=== PATIENT | female | born 1970 | race African-American/Black ===

== ENCOUNTER 2019-07-11 10:29 | Day surgery (SDC) | payer BC, OTHER ==
[2019-07-06 09:33] LABS: HEMATOCRIT 39.8 % (37.0-47.0); HEMOGLOBIN 13.3 gm/dL (12.0-15.0); MCH 27.8 pg (26.0-34.0); MCHC 33.4 g/dL (28.0-37.0); MCV 83.3 fL (80.0-100.0); RBC 4.78 mil/uL (4.20-5.00); RDW 17.4 % (10.5-14.5); WBC 4.7 thou/uL (4.0-11.0)
[2019-07-06 09:40] LABS: URINE BILIRUBIN NEGATIVE (Negative); URINE BLOOD NEGATIVE (Negative); URINE CLARITY CLEAR; URINE COLOR YELLOW; URINE GLUCOSE-RANDOM* NEGATIVE (Negative); URINE KETONES NEGATIVE (Negative); URINE LEUKOCYTES-REFLEX NEGATIVE (Negative); URINE NITRITE-REFLEX NEGATIVE (Negative); URINE PROTEIN (DIPSTICK) NEGATIVE (Negative); URINE UROBILINOGEN 0.2 E.U./dl (0.2-1.0)
[2019-07-06 09:48] LABS: INR 1.1; PROTIME 10.9 Seconds (9.3-11.4)
[2019-07-06 09:50] LABS: CALCIUM 8.6 mg/dL (8.5-10.1); CREATININE 0.7 mg/dL (0.6-1.0); POTASSIUM 4.1 mmol/L (3.5-5.1)
[~2019-07-11] VITALS: Ht 152.4 cm; Wt 91.6 kg
[~2019-07-11 10:29] MED LIST: NICOTINE GUM2 MG BUCCAL; TRAMADOL 50 MG50 MG PO; TRAZODONE 150150 M1 PO
[2019-07-11 12:55] VITALS: BP 111/64
[2019-07-11 15:00] VITALS: BP 132/81
[2019-07-11 15:30] VITALS: BP 122/63
--- NOTE | 2019-07-11 16:46 | NUR ---
PATIENT CAME TO 4 S UNIT ROOM 448 AT 1505. PT ALERT XS4 HAS [employer] DRESSING IN PLACE AND POLAR PACK. HAS SCD'S ON SAPNA LE'S. HAD RIGHT TKR. DR KERR DID PROCEDURE. V.S 97.5 16 62 132/81 O2 SAT = 96 % RA. 1530 V.S 97.7 16 64 122/63 O2 SAT 94 % RA.
--- NOTE | 2019-07-11 19:03 | NUR ---
PT SLEEPING AT THIS TIME ATE 100 % DINNER. SPOKE TO HER . STATES NO NEED FOR THIS NURSE TO CALL. PT IS PLEASANT AND COOPERATIVE WITH CARE. 734.00 DOLLARS IN GOINS AND 45.00 CHECK SECURITY CAME AND LOCKED UP FOR PATIENT.
[2019-07-11 19:28] VITALS: BP 115/78
[2019-07-11 20:18] VITALS: BP 115/78
--- NOTE | 2019-07-11 23:31 | NUR ---
PT AOX4. PT REPORTING PAIN IN RIGHT KNEE. PT RECEIVING PRN PO NORCO Q4HR, PRN IV MORPHINE Q1HR, AND PRN PO OXYCODONE Q4HR. PT AMBULATING TO BEDSIDE COMMODE WITH WALKER AND X1 ASSIST. PT TOLERATING PO INTAKE OF FLUIDS AND REGULAR DIET. ENCOURAGED PT TO NOTIFY STAFF FOR ALL NEEDS. CALL LIGHT WITHIN REACH, BED ALARM ON, BED IN LOWEST POSITION. WILL CONTINUE TO MONITOR.
[2019-07-12 04:43] VITALS: BP 112/62
[2019-07-12 05:38] LABS: HEMATOCRIT 34.8 % (37.0-47.0); HEMOGLOBIN 11.4 gm/dL (12.0-15.0); MCH 27.6 pg (26.0-34.0); MCHC 32.6 g/dL (28.0-37.0); MCV 84.5 fL (80.0-100.0); RBC 4.12 mil/uL (4.20-5.00); RDW 17.1 % (10.5-14.5); WBC 7.8 thou/uL (4.0-11.0)
--- NOTE | 2019-07-12 11:07 | O ---
[facility] [place] [address] OPERATIVE REPORT Name: GIOVANI SERRA Room #: 448-P REG [facility] [place] M.R.#: [id number] Admission: 07/11/19 Attend Phys: Aakash Villegas MD Discharge: Date of : 70 Report #: [id number] THIS REPORT FOR: cc: Susanna Robles MD,Susanna Villegas,Aakash Westfall MD ~ CC: Susanna Villegas DATE OF SERVICE: 07/11/2019 PREOPERATIVE DIAGNOSIS: Right knee osteoarthritis. POSTOPERATIVE DIAGNOSIS: Right knee osteoarthritis. PROCEDURE: Right total knee arthroplasty using Navio robotic assistance. SURGEON: Aakash Villegas MD HIDE MILL WORKER: Maylin Jhaveri PA-C INDICATIONS FOR HIDE MILL WORKER: Throughout the case, extensive retraction and manipulation of the knee was required. This was afforded to me by my carpenter's assistant. ANESTHESIA: LMA with an adductor canal block. IMPLANTS: [employer] size 5 Journey II BCS Oxinium femur, a size 3 tibia, size 10 polyethylene and size 32 patella. TOURNIQUET TIME: 57 minutes. ESTIMATED BLOOD LOSS: 25 mL. COMPLICATIONS: None. SPECIMENS: None. CONDITION UPON LEAVING THE OPERATING ROOM: Stable. INDICATIONS FOR PROCEDURE: The patient is a 48-year-old female with right knee osteoarthritis. She had failed conservative measures for this and after discussion with her, she elected for right total knee arthroplasty. DESCRIPTION OF PROCEDURE: Risks, benefits, alternatives, complications were discussed in detail with the patient including but not limited to risk of anesthesia, risk of damage to nerves, arteries, blood vessels, risk for [facility] [address] [place] [address] OPERATIVE REPORT Name: GIOVANI SERRA Room #: 448-P REG [facility].#: [id number] Admission: 07/11/19 Attend Phys: Aakash Villegas MD Discharge: Date of : 70 Report #: [id number] infection or bleeding, risk for continued knee pain, need for reoperation. Informed consent was obtained from the patient. Right knee was appropriately marked in the preoperative holding area. IV Ancef was given for preoperative antibiotics. She was brought to the operating room and placed in supine position on operating room table. LMA anesthesia was induced without complication. Tourniquet was placed on the right thigh. Right lower extremity was prepped and draped in normal sterile fashion. Timeout was performed properly identifying the patient and procedure as well as the instrumentation. All in the operating room were in agreement. Right lower extremity was exsanguinated, tourniquet was inflated. Tourniquet time was 57 minutes. Standard midline approach to the knee was made with 10 blade through the skin. Dissection was taken down sharply to the fascia. Deep flaps were developed medially and laterally. A fresh 10 blade was used to make a medial parapatellar arthrotomy and the knee was inspected. There was severe medial compartment with moderate lateral and patellofemoral compartment osteoarthritis. It was decided to proceed with total knee arthroplasty. ACL and PCL were removed sharply. Reference pins were placed in the femur and the tibia. The knee was then digitally mapped using the [employer] robotic system. Intraoperative plan was made and we sized the size 5 femur with a size 3 tibia and a size 10 spacer. After acceptance of the intraoperative plan, the distal femoral cut was made with a Navio bur. The distal femoral cutting block was pinned in place and chamfer cuts were made. Attention was then turned to the tibia. The remainder of the menisci removed with Bovie cautery. Tibial resection guide was pinned in place using the Navio for placement and tibial resection was made. After this, flexion and extension gaps were checked and found to be tight medially in flexion as well as extension. The MCL was taken down off of the medial tibial plateau. Medial osteophyte was removed from the tibial plateau and a limited medial release using the pie crusting technique was performed. This balanced the knee well medially and laterally. Tibia was sized, found to be a size 3. A size 3 tibial trial was placed, pinned and punched. A size 5 femoral trial was placed and the box cut was made. This was then trialed with a size 10 polyethylene. Knee was taken through range of motion, found to have good balance in flexion and extension both medially and laterally, both digitally as well as manually. A 9 mm was resected from the posterior surface of the patella and a size 32 patellar trial button was placed. Knee was taken through range of motion, found to be stable, found to have good patellar tracking. After this, trial components were removed. Bony ends were thoroughly irrigated with normal saline. A final size 3 tibia, size 5 Journey II BCS Oxinium femur and a size 32 patella were cemented in place using standard cementation techniques. While the cement cured, a periarticular injection consisting of morphine, ropivacaine, epinephrine, Toradol was placed around the knee joint capsule. After the cement cured, the tourniquet was deflated. Hemostasis was obtained with Bovie cautery. Final size 10 polyethylene was placed. A gram of vancomycin was placed deep in the joint. Fascia was closed with 0 Vicryl, skin was closed with 2-0 Vicryl, skin staple and a CHINEDU dressing was applied. The patient tolerated this [address] [address] OPERATIVE REPORT Name: GIOVANI SERRA Room #: 448-P REG [facility]..#: [id number] Admission: 07/11/19 Attend Phys: Aakash Villegas MD Discharge: Date of : 70 Report #: [id number] procedure well and went to recovery room under care of Anesthesia postoperatively. <ELECTRONICALLY SIGNED> By: Aakash Villegas MD 07/12/19 1107 1400 1417 Aakash Villegas MD /nt
[2019-07-12] MEDS ORDERED: MS CONTIN15 MG PO (11:29)
[2019-07-12] MEDS ORDERED: PERCOCET PO (11:29)
[2019-07-12] MEDS ORDERED: ASPIR 8181 MG PO (11:29)
[2019-07-12] MEDS ORDERED: NEURONTIN 300M300 M2 PO (11:29)
[2019-07-12 11:36] VITALS: BP 112/62
--- NOTE | 2019-07-12 12:24 | NUR ---
PT CARE ASSUMED AT 0700. A&Ox4. PT UP IN THE ROOM INDEPENDENTLY EVEN WITH MULTIPLE INSTRUCTIONS TO CALL OUT WHEN NEEDING HELP. DURING DISCHARGE INSTRUCTIONS PT MADE A STATEMENT THAT SHE HAD HER MEDICATIONS IN HER PURSE THAT DR. KERR HAD PERSCRIBED POST OP FOR HER. THIS INCLUDES OXYCODONE AND CONTROLLED RELEASE MORPHINE. CHARGE NURSE AWARE AND PT EDUCATED THAT THIS SHOULD HAVE BEEN MENTIONED TO US SO WE COULD HAVE LOCKED IT AWAY. PT MONEY RETURNED FROM SECURITY. [employer] DRESSING INTACT. SCD'S/TEDHOSES/POLARPACK IN PLACE. PAIN MEDICATION NOT ADEQUATE FOR PT AND SHE DECLINED OXYCODONE DUE TO NOT BEING ABLE TO HAVE IT AT [facility] SAME TIME BENADRYL. PT WAITED TO RECEIVE OXYCODONE UNTIL HER BENADRYL WAS DUE. PT INSTRUCTED ON THE CARE OF HER POLARPACK AND CHINEDU DRESSING. PT UNDERSTANDS. PT WAS DISCHARGED AT 1229PM
== END 2019-07-12 12:32 | disposition home or self-care (01) ==
LOC: 4S 10:29 → OR 10:29 → TBA 10:29 → PRE 12:06 → EDSTATUS 12:09 → OR 12:12 → 4S 15:20 → OR 15:50
PROVIDERS: Orthopaedic Surgery
DX: M17.11 Unilateral primary osteoarthritis, right knee (principal); M25.561 Pain in right knee; D64.9 Anemia, unspecified; F17.210 Nicotine dependence, cigarettes, uncomplicated; Z90.710 Acquired absence of both cervix and uterus; Z98.890 Other specified postprocedural states; Z79.899 Other long term (current) drug therapy
CPT/HCPCS: 10102; 50010; 50101; 50415; 50954; 51130; 51225; 51320; 51412; 52001; 52282; 53000; 53078; 55372; 56527; 56528; 57095; 57103; 57110; 57127; 57180; 62110; 62900; 64039; 70005

== ENCOUNTER → 2019-07-16 | Outpatient (CLI) | payer BC, OTHER ==
[~2019-07-16] MED LIST changes: +ASPIR 8181 MG PO; +MS CONTIN15 MG PO; +NEURONTIN 300M300 M2 PO; +PERCOCET PO
== END ==
LOC: ULTRA 15:31
DX: R10.31 Right lower quadrant pain (principal); M79.89 Other specified soft tissue disorders